=== PATIENT | male | born 1980 | race Caucasian/White ===

== ENCOUNTER 2022-01-29 20:54 | Emergency (ER) | payer MEDICAID, OTHER ==
[~2022-01-29] VITALS: Ht 170.2 cm; Wt 73.0 kg
[2022-01-29 23:12] VITALS: BP 135/95
== END 2022-01-29 23:31 | disposition home or self-care (01) ==
LOC: ER 20:54
DX: F10.129 Alcohol abuse with intoxication, unspecified (principal); Y90.9 Presence of alcohol in blood, level not specified
CPT/HCPCS: 99283

== ENCOUNTER 2024-02-09 19:03 | Emergency (ER) | payer MEDICAID, OTHER ==
[~2024-02-09] VITALS: Ht 170.2 cm; Wt 73.0 kg
[2024-02-09 19:05] VITALS: O2SAT 99
[2024-02-09 19:39] VITALS: BP 113/75; PULSE 104; RESP 18; TEMP 37.11408; O2SAT 98
[2024-02-09] MEDS: TETANUS AND DIPHTHERIA TOX/PF 0.5ML SYR (ADULT) IM ONE (20:20)
== END 2024-02-09 21:52 | disposition home or self-care (01) ==
LOC: ER 19:03
DX: S00.01XA Abrasion of scalp, initial encounter (principal); F10.129 Alcohol abuse with intoxication, unspecified; Z98.890 Other specified postprocedural states; R51.9 Headache, unspecified; X58.XXXA Exposure to other specified factors, initial encounter; Y93.89 Activity, other specified; Y92.89 Other specified places as the place of occurrence of the external cause; Y99.8 Other external cause status; Y90.9 Presence of alcohol in blood, level not specified
CPT/HCPCS: 70450; 72125; 90714; 90471; 99285; Z7610